=== PATIENT | male | born 1945 | race Caucasian/White ===

== ENCOUNTER 2017-10-21 10:53 | Emergency (ER) | payer MEDICARE ==
--- NOTE | 2017-10-21 11:42 | EDM.PDOC ---
ED HPI GENERAL MEDICAL PROBLEM - General Chief Complaint: ENT Problem Stated Complaint: L EYE REDNESS Time Seen by Provider: 10/21/17 11:26 Source of Information: Reports: Patient History Limitations: Reports: No Limitations - History of Present Illness INITIAL COMMENTS - FREE TEXT/NARRATIVE: This patient complains of redness to his left eye. It started yesterday morning on the bottom side of the eye and then today has spread all over the eye. He said it feels a little bit mattery although there is no discharge. He has been rubbing it a little bit. The vision is unchanged. He does not take aspirin although his doctor has recommended it and he took one ibuprofen tablet this morning. He doesn't use any type of anticoagulant - Related Data Allergies Allergy/AdvReac Type Severity Reaction Status Date / Time Sulfa (Sulfonamide Allergy Facial Verified 10/21/17 11:17 Antibiotics) Swelling Home Meds: Home Meds Loratadine [Claritin] 10 mg PO DAILY 10/21/17 [History] Omeprazole 20 mg PO DAILY 10/21/17 [History] Pravastatin [Pravachol] 20 mg PO BEDTIME 10/21/17 [History] Past Medical History HEENT History: Reports: Impaired Vision Cardiovascular History: Reports: High Cholesterol, Hypertension Gastrointestinal History: Reports: GERD Social & Family History - Tobacco Use Smoking Status *Q: Never Smoker - Alcohol Use Days Per Week of Alcohol Use: 7 Number of Drinks Per Day: 3 Total Drinks Per Week: 21 - Recreational Drug Use Recreational Drug Use: No ED ROS ENT - Review of Systems Review Of Systems: ROS reveals no pertinent complaints other than HPI. ED EXAM, ENT - Physical Exam Exam: See Below Exam Limited By: No Limitations General Appearance: Alert, WD/WN, No Apparent Distress Eye Exam: Left Eye: Conjunctival Injection (There is a sub-conjunctival hemorrhage to the left eye. The upper and lower lids were retracted. There appears to have been a bleeding point inferior to the iris. The conjunctiva is fairly bright red to the medial and lateral sides of the eye but superior to the iris it is still white.), Bilateral Eye: Other (Vision is 20/25 bilaterally. Left cornea and anterior chamber appeared to be normal. The fundus is normal on the left through an unknown dilated pupil. There is no discharge) Neurological: Alert, Oriented, Normal Cognition Skin: Warm, Dry, Intact Course - Vital Signs Last Recorded V/S: Last Vital Signs Temp 36.7 C 10/21/17 11:15 Pulse 81 10/21/17 11:15 Resp 18 10/21/17 11:15 BP 160/80 H 10/21/17 11:15 Pulse Ox 97 10/21/17 11:15 Departure - Departure Time of Disposition: 11:39 Disposition: Home, Self-Care 01 Condition: Fair Clinical Impression: Subconjunctival hemorrhage of left eye - Discharge Information Referrals: Josefa Lira MD [Primary Care Provider] - Additional Instructions: You have a sub-conjunctival hemorrhage of the left eye. This is when one of the little tiny blood vessels breaks in the outer covering of the eye. This is pretty common. It can happen because of some minor trauma especially in people who take aspirin or ibuprofen therefore he should avoid these medications in the near future. There doesn't appear to be an obvious infection although you or being put on antibiotic drops. Use the gentamicin drops one or 2 drops 4 times a day to the left eye for the next 3 or 4 days. Your eyes should get better over the next few days. If at any time you feel they are getting worse then please return to the emergency department.
== END 2017-10-21 12:01 | disposition home or self-care (01) ==
LOC: JP.ED 10:53
DX: H11.32 Conjunctival hemorrhage, left eye (principal); E78.00 Pure hypercholesterolemia, unspecified; I10 Essential (primary) hypertension; Z88.2 Allergy status to sulfonamides
CPT/HCPCS: 99283

== ENCOUNTER 2019-02-26 08:27 | Day surgery (SDC) | payer MEDICARE ==
[2019-02-26] MEDS ORDERED: Lactated Ringers 1,000 ML IV SCH (09:00)
[2019-02-26] MEDS ORDERED: Propofol 200 MG/20 ML SDV ONE (09:13)
[2019-02-26] MEDS ORDERED: fentaNYL 100 MCG/2 ML SDV ONE (09:13)
[2019-02-26] MEDS ORDERED: Midazolam 1 MG/ML 2 ML SDV ONE (09:13)
[2019-02-26] MEDS ORDERED: Atropine 0.4 MG/ML SDV ONE (10:05)
--- NOTE | 2019-02-26 12:12 | OR ---
DATE OF PROCEDURE: 02/26/2019 PREOPERATIVE DIAGNOSIS: Colon cancer screening. POSTOPERATIVE DIAGNOSES: Diverticulosis, small transverse colon polyp. PROCEDURE PERFORMED: Colonoscopy to the cecum with biopsy resection of small transverse colon polyp. SURGEON: Sergio Barajas MD ANESTHESIA: IV anesthesia with monitored anesthesia care. INDICATION: This 73-year-old white male is referred for a colonoscopy for colon cancer screening. He says his last colonoscopic exam was 12 years ago. One of the nurses heard 7 years ago. He told the nurse that he has a history of polyps. I counseled him for the procedure, including risks and alternatives, and he gave his informed consent to proceed. DESCRIPTION OF PROCEDURE: The patient was placed in the left lateral decubitus position. IV anesthesia was administered by the Anesthesia Service. Time-out was held. A rectal exam was performed, which was unremarkable. The flexible video Olympus colonoscope was introduced through his anus, up his rectum and out his colon all the way to the cecum. En route, we saw multiple left-sided diverticula. There was no bleeding or inflammation associated with them. We also saw a couple of right-sided diverticula. Once the cecum was reached, the scope was slowly withdrawn examining the mucosa throughout. No additional mucosal abnormalities were noted until we reached the transverse colon. Here, we saw a polyp which was removed with the biopsy forceps and was sent to the laboratory. The scope was withdrawn further with no other new lesions noted. The scope was retroflexed in the rectum with the distal rectum appearing unremarkable. The scope was straightened and removed. He tolerated the procedure well. Sergio Barajas MD /[id number] [facility]avage
== END 2019-02-26 11:20 | disposition home or self-care (01) ==
LOC: JP.SDS 08:27
PROVIDERS: ATTEND Surgery
DX: Z12.11 Encounter for screening for malignant neoplasm of colon (principal); D12.3 Benign neoplasm of transverse colon; K57.30 Diverticulosis of large intestine without perforation or abscess without bleeding; I10 Essential (primary) hypertension; E78.00 Pure hypercholesterolemia, unspecified; K21.9 Gastro-esophageal reflux disease without esophagitis; Z88.2 Allergy status to sulfonamides; Z86.010 Personal history of colon polyps
CPT/HCPCS: 45380; 88305; J0461; J2250; J2704; J3010; J7120

== ENCOUNTER 2022-05-18 06:35 | Day surgery (SDC) | payer MEDICARE ==
[2022-05-18] MEDS ORDERED: Midazolam 1 MG/ML 2 ML SDV ONE (07:15)
[2022-05-18] MEDS ORDERED: Lactated Ringers 1,000 ML IV SCH (07:15)
[2022-05-18] MEDS ORDERED: fentaNYL 100 MCG/2 ML SDV ONE (07:15)
[2022-05-18] MEDS ORDERED: Propofol 200 MG/20 ML SDV ONE (07:15)
== END 2022-05-18 09:19 | disposition home or self-care (01) ==
LOC: JP.SDS 06:35
PROVIDERS: ATTEND Family Medicine
DX: Z12.11 Encounter for screening for malignant neoplasm of colon (principal); K64.8 Other hemorrhoids; K57.30 Diverticulosis of large intestine without perforation or abscess without bleeding; I10 Essential (primary) hypertension; K22.70 Barrett's esophagus without dysplasia; E78.5 Hyperlipidemia, unspecified; Z86.010 Personal history of colon polyps; Z88.2 Allergy status to sulfonamides; Z79.83 Long term (current) use of bisphosphonates; Z79.899 Other long term (current) drug therapy; Z79.891 Long term (current) use of opiate analgesic; Z79.810 Long term (current) use of selective estrogen receptor modulators (SERMs); Z01.812 Encounter for preprocedural laboratory examination; Z20.822 Contact with and (suspected) exposure to COVID-19
CPT/HCPCS: G0121; J2250; J2704; J3010; J7120; U0002